=== PATIENT | male | born 1995 | race Two or more races ===

== ENCOUNTER 2018-07-18 22:44 | Emergency (ER) | payer MEDICAID ==
[~2018-07-18] VITALS: Ht 170.2 cm; Wt 58.5 kg
[2018-07-18] MEDS ORDERED: MAALOX/HYOSCYAMINE/LIDOCAINE 45 ML BTL ONE (23:26)
[2018-07-18] MEDS ORDERED: MAALOX/HYOSCYAMINE/LIDOCAINE 45 ML BTL PO ONE (23:30)
--- NOTE | 2018-07-18 23:46 | NUR ---
PT GIVEN CRACKERS AND JUICE. PT IS ABLE TO SWALLOW. NO COUGHING NO CHOAKING. PT REPORTS HE FEELS BETTER. CALL LIGHT IN PLACE. WILL CONTINUE TO MONITOR.
[2018-07-19 00:04] VITALS: BP 126/74
--- NOTE | 2018-07-19 00:04 | NUR ---
PT WANTS TO LEAVE NO AIRWAY COMPROMISE, PT WAS ABLE TO SWALLOW CRACKERS AND JUICE. NO COUGHING. DR BELL AWARE. WILL CONTINUE TO MONITOR.
== END 2018-07-19 00:32 | disposition home or self-care (01) ==
LOC: ED 07-19 00:15
DX: T18.128A Food in esophagus causing other injury, initial encounter (principal); F17.200 Nicotine dependence, unspecified, uncomplicated; X58.XXXA Exposure to other specified factors, initial encounter; Y93.89 Activity, other specified; Y92.89 Other specified places as the place of occurrence of the external cause; Y99.8 Other external cause status
CPT/HCPCS: 70360; 99283

== ENCOUNTER 2018-12-13 20:43 | Emergency (ER) | payer MEDICAID, OTHER ==
[~2018-12-13] VITALS: Ht 170.2 cm; Wt 58.4 kg
[2018-12-13 20:47] VITALS: BP 118/63
[2018-12-13] MEDS ORDERED: CEFTRIAXONE 250 MG ONE (21:21)
[2018-12-13] MEDS ORDERED: LIDOCAINE-MPF 1%, 5ML ONE (21:21)
[2018-12-13] MEDS ORDERED: AZITHROMYCIN 500 MG TABLET ONE (21:21)
--- NOTE | 2018-12-13 21:27 | NUR ---
PT HERE FOR STI, PT TREATED WITHOUT ISSUE. Patient/Caregiver given discharge instructions and they have confirmed that they understand the instructions. Patient ambulatory with steady gait.
[2018-12-13] MEDS ORDERED: AZITHROMYCIN 500 MG TABLET PO ONE (21:30)
[2018-12-13] MEDS ORDERED: CEFTRIAXONE 250 MG IM ONE (21:30)
== END 2018-12-13 21:31 | disposition home or self-care (01) ==
LOC: ED 21:20
DX: A74.9 Chlamydial infection, unspecified (principal); B37.42 Candidal balanitis
CPT/HCPCS: 87491; 87591; 99283

== ENCOUNTER 2019-01-28 14:57 | Emergency (ER) | payer MEDICAID ==
[~2019-01-28] VITALS: Ht 172.7 cm; Wt 57.0 kg
[2019-01-28 14:59] VITALS: BP 113/65
== END 2019-01-28 15:58 | disposition home or self-care (01) ==
LOC: ED 15:28
DX: R30.0 Dysuria (principal)
CPT/HCPCS: 81001; 87491; 87591; 99283